=== PATIENT | male | born 1985 | race Caucasian/White ===

== ENCOUNTER 2021-05-21 04:44 | Emergency (ER) | payer MEDICAID ==
[~2021-05-21] VITALS: Ht 162.6 cm; Wt 81.6 kg
[2021-05-21 04:50] VITALS: BP 122/79
--- NOTE | 2021-05-21 04:50 | NUR ---
PT W/C ASSISTED TO BED 09.
--- NOTE | 2021-05-21 05:09 | NUR ---
REPORTS PAIN TO LOWER LEG WITH NOTABLE SWELLING AND REDNESS TO SITE. PATIENT HAS NO FURTHER COMPLAINTS. REPORTS PAST MEDICAL HX OF GOUT WITH NKA
[2021-05-21] MEDS ORDERED: KETOROLAC 30 MG/ML VIAL IVP ONE (05:25)
[2021-05-21] MEDS ORDERED: PRED20TA5 PO (05:58)
[2021-05-21] MEDS ORDERED: CEPH-588 PO (05:58)
[2021-05-21] MEDS ORDERED: ACET-8386 PO (05:58)
[2021-05-21] MEDS ORDERED: IBUP-2213 PO (05:58)
--- NOTE | 2021-05-21 06:05 | NUR ---
PATIENT CLEARED FOR DISCHARG AT THIS TIME. PENDING END OF BOLUS
--- NOTE | 2021-05-21 06:32 | NUR ---
FLUIDS FINISHED, PATIENT DISCHARGED AT THIS TIME. NO FURTHER QUESTIONS AFTER DISCHARGE TEACHING. ADVISED TO FOLLOW UP WITH PCP AND RETURN IF CONDITION WORSENS. RX SENT TO PHARMACY
[2021-05-21 06:33] VITALS: BP 122/79
== END 2021-05-21 06:32 | disposition home or self-care (01) ==
LOC: MED 04:44
DX: L03.116 Cellulitis of left lower limb (principal)
CPT/HCPCS: 96374; 99283; J1885

== ENCOUNTER 2021-06-19 15:59 | Inpatient (IN) | payer MEDICAID, SELFPAY ==
[~2021-06-19] VITALS: Ht 160 cm; Wt 91.6 kg
[~2021-06-19 15:59] MED LIST: ACET-8386 PO; CEPH-588 PO; IBUP-2213 PO; PRED20TA5 PO
[2021-06-19 16:07] VITALS: BP 127/88
[2021-06-19] MEDS ORDERED: NACL 0.9% 1,000 ML IV SCH (16:10)
[2021-06-19] MEDS ORDERED: cefTRIAXone 1,000 MG in DEXT 5% MINI-BAG PLUS 50 ML IV ONE (16:10)
--- NOTE | 2021-06-19 16:12 | NUR ---
PT W/C ASSISTED TO BED 3
--- NOTE | 2021-06-19 16:37 | NUR ---
ULTRASOUND AT BEDSIDE
[2021-06-19 16:51] LABS: BASOPHILS # (AUTO) 0.1 K/uL (0.00-0.22); BASOPHILS % (AUTO) 0.7 % (0.0-2.0); EOSINOPHILS # (AUTO) 0.2 K/uL (0-0.4); EOSINOPHILS % (AUTO) 1.5 % (0.0-4.0); HEMOGLOBIN 13.7 g/dL (12.0-18.0); LYMPHOCYTES # (AUTO) 1.6 K/uL (2.0-11.5); LYMPHOCYTES % (AUTO) 15.6 % (20.5-51.1); MEAN CORPUSCULAR HEMOGLOBIN 29 pg (27-31); MEAN CORPUSCULAR HGB CONC 34 g/dL (33-37); MEAN CORPUSCULAR VOLUME 85.2 fL (80-94); MONOCYTES # (AUTO) 0.8 K/uL (0.8-1.0); MONOCYTES % (AUTO) 7.8 % (1.7-9.3); NEUTROPHILS # (AUTO) 7.6 K/uL (1.8-7.7); NEUTROPHILS % (AUTO) 74.4 % (42.2-75.2); PLATELET COUNT (AUTO) 270 K/uL (140-450); RED CELL DISTRIBUTION WIDTH 14.5 % (11.6-13.7); WHITE BLOOD COUNT (AUTO) 10.3 K/uL (4.8-10.8)
[2021-06-19] MEDS ORDERED: cefTRIAXone 1,000 MG VIAL ONE (16:54)
[2021-06-19 17:07] LABS: ALBUMIN 3.2 g/dL (3.4-5.0); ANION GAP 12.2 (8-16); CARBON DIOXIDE 27.7 mmol/L (21-32); CREATININE 0.9 mg/dL (0.6-1.3); POTASSIUM 3.9 mmol/L (3.5-5.1); TOTAL BILIRUBIN 0.5 mg/dL (0.0-1.0)
--- NOTE | 2021-06-19 17:08 | NUR ---
HIM DIRECTOR AT BEDSIDE
--- NOTE | 2021-06-19 17:46 | NUR ---
36/M BIB SELF WITH C/O BILATERAL LEG PAIN X3 WEEKS. PATIENT STATES HE BEGAN HAVING REDNESS AND SWELLING TO BILATERAL LEGS, REPORTS SEEING HIS PCP AND GIVEN RX OF BACTRIM AND WAS GIVEN ROCEPHIN IM WITHOUT IMPROVEMENT. PATIENT REPORTS HE WAS REFERRED TO COME TO THE ED TO RULE OUT DVT. PATIENT REPORTS 5/10 PAIN THAT WORSENS WITH TOUCH OR MOVEMENT, DENIES FEVERS, CHILLS, NAUSEA, VOMITING. BILATERAL LEGS ARE RED, SWOLLEN AND TENDER TO TOUCH, LEFT CALF TENDERNESS. PATIENT PLACED IN GOWN, ON BEDSIDE CONVEYOR WEIGHER OPERATOR.
--- NOTE | 2021-06-19 19:25 | NUR ---
Pt report given to DENISHA COTTON. Transfer of care at this time.
[2021-06-19] MEDS ORDERED: VANCOMYCIN PER PHARMACY MC PRN (19:40)
[2021-06-19] MEDS ORDERED: MORPHINE SULFATE 2 MG/ML SYR IVP PRN (19:40)
[2021-06-19] MEDS ORDERED: MORPHINE SULFATE 4 MG/ML SYR IVP PRN (19:40)
--- NOTE | 2021-06-19 20:00 | NUR ---
REPORT GIVEN TO SUKI DENNY AT THIS TIME FOR TRANSPORT TO [facility]
[2021-06-19 20:15] VITALS: BP 132/76
--- NOTE | 2021-06-19 20:15 | NUR ---
ADMITTED FROM EMERGENCY DEPARTMENT VIA [facility] WITH TWO STAFF WITH CHIEF COMPLAINT OF PAIN - BILATERAL LOWER EXTREMITIES. PATIENT IS 36 Y/O MALE, COOPERATIVE AWAKE, ALERT AND VERBALLY RESPONSIVE. AOX4. INITIAL V/S TAKEN, PATIENT IN ROOM AIR. HEAD TO TOE ASSESSMENT DONE WITH DENISHA KILLIAN COMPLETED. REDNESS AND SWELLING NOTED ON BILATERAL LOWER EXTREMITIES. SKIN INTACT. IV LINE ON RAC 20G, INTACT AND PATENT. ORIENTED TO CALL LIGHT, BED, PHONE, TELEVISION, BATHROOM, VISITING HOURS, ID BRACELET ON, BELONGING LIST CHECKED. ALL SAFETY MEASURES IN PLACE. CALL LIGHT WITHIN REACH. WILL CONTINUE TO MONITOR.
[2021-06-19] MEDS ORDERED: VANCOMYCIN 1,000 MG in DEXTROSE 5% 250 ML IV ONE (21:00)
[2021-06-19] MEDS ORDERED: VANCOMYCIN 1,000 MG VIAL ONE (22:16)
--- NOTE | 2021-06-19 22:30 | NUR ---
VANCOMYCIN GIVEN PER MD ORDER. PT TOLERATED WELL.BREATHING IS UNLABORED AND EQUAL. PT ASKED FOR A SANDWICH AND APPLE JUICE.ALL NEEDS MET.ALL PRECAUTIONS IN PLACE.WILL CONTINUE TO MONITOR.
--- NOTE | 2021-06-20 00:30 | NUR ---
PT COMPLAINED OF 7/10 PAIN ON HIS BLE. PRN PAIN MEDICATION GIVEN. PT TOLERATED WELL. ALL PRECAUTIONS IN PLACE. WILL CONTINUE TO MONITOR.
[2021-06-20] MEDS ORDERED: METOPROLOL 25 MG TAB PO SCH (01:59)
[2021-06-20] MEDS ORDERED: ONDANSETRON 4 MG/2 ML VIAL IVP PRN (02:00)
[2021-06-20] MEDS ORDERED: METOPROLOL 25 MG TAB ONE (02:02)
--- NOTE | 2021-06-20 02:12 | NUR ---
PT IS NAUSEOUS AND IS VOMITING. ALSO PT HEART RATE AT 131. MESSAGE AND SHE ORDERED METOPROLOL PO AND ZOFRAN PRN.
[2021-06-20 02:17] VITALS: BP 116/72
--- NOTE | 2021-06-20 04:15 | NUR ---
ROUNDS MADE.PT DENIES NAUSEA. NO DISTRESS NOTED. VISIBLE CHEST RISE AND FALL. ALL PRECAUTIONS IN PLACE. CALL LIGHT WITHIN REACH.WILL CONTINUE TO MONITOR.
--- NOTE | 2021-06-20 06:19 | NUR ---
PT IS STABLE. NO ACUTE EVENTS THROUGHOUT THE NIGHT ASIDE FROM EPISODE OF NAUSEA AND VOMITING.NO S/SX OF DISTRESS NOTED. BREATHING EQUAL AND UNLABORED. ALL NEEDS MET.ALL PRECAUTIONS IN PLACE. CALL LIGHT WITHIN REACH.WILL ENDORSE TO AM SHIFT NURSE.
--- NOTE | 2021-06-20 07:39 | NUR ---
PATIENT ENDORSED TO AM NURSE FOR CONTINUITY OF CARE. V/S WNL. PATIENT IS STABLE. ALL SAFETY MEASURES IN PLACE. CALL LIGHT WITHIN REACH.
[2021-06-20 08:00] VITALS: BP 108/68
--- NOTE | 2021-06-20 08:00 | NUR ---
RECEIVED REPORT FROM PRINTING EQUIPMENT MECHANIC APPRENTICE AT BEDSIDE FOR CONTINUITY OF CARE. PATIENT ALERT AWAKE ORIENTED X4, NOT IN ANY DISTRESS NOTED. WITH IVF ON GOING AND INFUSING WELL. DENIES PAIN AT THIS TIME. ON MONITOR SHOWS SR. NEEDS ATTENDED. WILL CONTINUE TO MONITOR.
[2021-06-20] MEDS: VANCOMYCIN 1,000 MG in DEXTROSE 5% 250 ML IV SCH ×2 (08:06→17:00)
[2021-06-20] MEDS: METOPROLOL 25 MG TAB PO SCH ×2 (08:54→20:38)
--- NOTE | 2021-06-20 08:54 | NUR ---
PATIENT HAS BEEN SCREENED AND CATEGORIZED LOW NUTRITION RISK. PATIENT WILL BE SEEN WITHIN 7 DAYS OF ADMISSION. 06/26/[address]
[2021-06-20] MEDS ORDERED: POTASSIUM CHLORIDE 10 MEQ TABER PO PRN (09:25)
[2021-06-20] MEDS ORDERED: MAG SULF 2000 MG/WATER PREMIX 50 ML IV PRN (09:25)
[2021-06-20] MEDS ORDERED: ONDANSETRON 4 MG/2 ML VIAL IM/IVP PRN (09:50)
[2021-06-20] MEDS ORDERED: ZOLPIDEM 5 MG TAB PO PRN (09:50)
[2021-06-20] MEDS ORDERED: ACETAMINOPHEN 325 MG TAB PO PRN (09:50)
[2021-06-20] MEDS ORDERED: DOCUSATE SODIUM 100 MG GELCAP PO PRN (09:50)
[2021-06-20] MEDS ORDERED: LORazepam 2 MG/ML VIAL IM/IVP PRN (09:50)
[2021-06-20 10:38] LABS: PROTHROMBIN TIME 16.4 secs (10.8-13.4)
[2021-06-20] MEDS: NACL 0.9% 1,000 ML IV SCH (10:43)
[2021-06-20 10:49] LABS: THYROID STIMULATING HORMONE 1.61 uIU/mL (0.34-3.74)
--- NOTE | 2021-06-20 12:00 | NUR ---
SEEN BY DR. MAX AND GOT ORDER TO DOWNGRADE. WILL CONTINUE TO MONITOR.
[2021-06-20 13:42] LABS: ANION GAP 11.5 (8-16); CARBON DIOXIDE 26.2 mmol/L (21-32); POTASSIUM 3.7 mmol/L (3.5-5.1)
[2021-06-20 14:02] LABS: BASOPHILS % (AUTO) 0.2 % (0.0-2.0); EOSINOPHILS # (AUTO) 0.1 K/uL (0-0.4); EOSINOPHILS % (AUTO) 1.2 % (0.0-4.0); HEMATOCRIT 37.4 % (36-52); HEMOGLOBIN 12.6 g/dL (12.0-18.0); LYMPHOCYTES # (AUTO) 1.2 K/uL (2.0-11.5); LYMPHOCYTES % (AUTO) 14.9 % (20.5-51.1); MEAN CORPUSCULAR HEMOGLOBIN 29 pg (27-31); MEAN CORPUSCULAR HGB CONC 34 g/dL (33-37); MEAN CORPUSCULAR VOLUME 85.3 fL (80-94); MONOCYTES # (AUTO) 0.4 K/uL (0.8-1.0); MONOCYTES % (AUTO) 5.4 % (1.7-9.3); NEUTROPHILS # (AUTO) 6.4 K/uL (1.8-7.7); NEUTROPHILS % (AUTO) 78.3 % (42.2-75.2); PLATELET COUNT (AUTO) 243 K/uL (140-450); RED BLOOD CELL COUNT(AUTO) 4.38 MIL/uL (4.20-6.10); RED CELL DISTRIBUTION WIDTH 14.2 % (11.6-13.7); WHITE BLOOD COUNT (AUTO) 8.1 K/uL (4.8-10.8)
[2021-06-20 16:00] VITALS: BP 117/81
--- NOTE | 2021-06-20 19:23 | NUR ---
REPORT GIVEN TO BUILDING ILLUMINATING ENGINEER AT BEDSIDE FOR CONTINUITY OF CARE. PATIENT IN STABLE CONDITION.
--- NOTE | 2021-06-20 19:24 | NUR ---
RECEIVED REPORT AT BEDSIDE FROM AM NURSE. PATIENT IN BED EATING SOME SNACKS. AWAKE, ALERT AND VERBALLY RESPONSIVE. ABLE TO VERBALIZED NEEDS. ALL SAFETY MEASURES IN PLACE. CALL LIGHT WITHIN REACH. WILL CONT TO MONITOR.
--- NOTE | 2021-06-20 20:45 | NUR ---
ADMINISTERED SCHEDULED MEDICATIONS. PATIENT TOLERATED WELL. NO ADVERSE SIDE EFFECT NOTED. ALL SAFETY MEASURES IN PLACE. CALL LIGHT WITHIN REACH. WILL CONTINUE TO MONITOR.
--- NOTE | 2021-06-20 23:00 | NUR ---
ROUNDING PATIENT. SLEEPING WELL. VISIBLE CHEST RISING AND FALLING. CALL LIGHT WITHIN REACH. WILL CONTINUE TO MONITOR.
[2021-06-21] VITALS: BP 113/60
[2021-06-21] MEDS: VANCOMYCIN 1,000 MG in DEXTROSE 5% 250 ML IV SCH (00:39)
--- NOTE | 2021-06-21 01:00 | NUR ---
PATIENT SLEEPING WELL. CHEST SEEN RISING AND FALLING. WILL CONTINUE TO MONITOR.
[2021-06-21] MEDS: HYDROcodone/APAP 5/325 MG 1 TAB TAB PO PRN ×2 (02:24→20:20)
[2021-06-21] MEDS: NACL 0.9% 1,000 ML IV SCH ×2 (02:30→19:10)
--- NOTE | 2021-06-21 04:40 | NUR ---
ROUNDING PATIENT. PATIENT IS AWAKE AND ASKING FOR SOME SNACKS. SNACKS PROVIDED. CALL LIGHT WITHIN REACH. WILL CONTINUE TO MONITOR.
--- NOTE | 2021-06-21 05:24 | NUR ---
Patient's Plan of Care was discussed and reviewed with NOMI: LLUVIA
--- NOTE | 2021-06-21 07:25 | NUR ---
ENDORSED PATIENT TO AM NURSE FOR CONTINUITY OF CARE. PATIENT IS STABLE.
[2021-06-21 07:42] LABS: BASOPHILS # (AUTO) 0.1 K/uL (0.00-0.22); BASOPHILS % (AUTO) 0.8 % (0.0-2.0); EOSINOPHILS # (AUTO) 0.2 K/uL (0-0.4); HEMATOCRIT 40.3 % (36-52); HEMOGLOBIN 13.7 g/dL (12.0-18.0); LYMPHOCYTES # (AUTO) 1.8 K/uL (2.0-11.5); LYMPHOCYTES % (AUTO) 23.2 % (20.5-51.1); MEAN CORPUSCULAR HEMOGLOBIN 29 pg (27-31); MEAN CORPUSCULAR HGB CONC 34 g/dL (33-37); MEAN CORPUSCULAR VOLUME 85.2 fL (80-94); MONOCYTES # (AUTO) 0.6 K/uL (0.8-1.0); MONOCYTES % (AUTO) 8.2 % (1.7-9.3); NEUTROPHILS % (AUTO) 64.8 % (42.2-75.2); PLATELET COUNT (AUTO) 295 K/uL (140-450); RED BLOOD CELL COUNT(AUTO) 4.73 MIL/uL (4.20-6.10); RED CELL DISTRIBUTION WIDTH 14.3 % (11.6-13.7); WHITE BLOOD COUNT (AUTO) 7.8 K/uL (4.8-10.8)
[2021-06-21 07:53] LABS: MAGNESIUM 2.1 mg/dL (1.8-2.4); PHOSPHORUS 2.8 mg/dL (2.5-4.9)
--- NOTE | 2021-06-21 07:59 | NUR ---
RECEIVED REPORT FROM PRINCIPAL NETWORK ARCHITECT AT BEDSIDE FOR CONTINUITY OF CARE. PATIENT ALERT AWAKE ORIENTED X4, NOT IN ANY DISTRESS NOTED. WITH IVF ON GOING AND INFUSING WELL. DENIES PAIN AT THIS TIME. BRATHING EVEN UNLABORED, ALL SFETY MEASURES ON PLACE, CALS LIGHT WITHIN REACH
[2021-06-21 08:00] VITALS: BP 120/84
[2021-06-21 08:08] LABS: T4 (THYROXINE) 6.2 ug/dL (4.5-12.0)
[2021-06-21 08:13] LABS: ANION GAP 13.7 (8-16); CARBON DIOXIDE 24.2 mmol/L (21-32); CREATININE 0.9 mg/dL (0.6-1.3); POTASSIUM 3.9 mmol/L (3.5-5.1)
[2021-06-21 09:18] LABS: CHOL/HDL RATIO 4.4 (1-4.5)
[2021-06-21] MEDS: METOPROLOL 25 MG TAB PO SCH ×2 (09:24→21:06)
[2021-06-21] MEDS: VANCOMYCIN HCL 1.25 GM in DEXTROSE 5% 250 ML IV SCH ×2 (09:25→16:05)
--- NOTE | 2021-06-21 10:12 | NUR ---
PATIENT IN BED NO COMPLAINS, GOT MORNING MEDICATION ADMINISTRATED, TOLERATED WELLNO SOD NOTED, ALL SAFETY MEASURES ONPLACE, CALLS LIGHT WITHIN REACH
--- NOTE | 2021-06-21 10:54 | NUR ---
DR GUZMAN ASKED TO STOP CEFTRIAXONE DR SQUIRES SUGGESTED
--- NOTE | 2021-06-21 11:49 | NUR ---
PATIENT IN BED NO COMPLAINS,NO SOD NOTED, ALL SAFETY MEASURES ONPLACE, CALLS LIGHT WITHIN REACH
--- NOTE | 2021-06-21 14:10 | NUR ---
PATIENT IN BED NO COMPLAINS,NO SOD NOTED, ALL SAFETY MEASURES ON PLACE, CALLS LIGHT WITHIN REACH
[2021-06-21 16:00] VITALS: BP 104/61
--- NOTE | 2021-06-21 16:20 | NUR ---
PATIENT IN BED NO COMPLAINS,NO SOD NOTED, ALL SAFETY MEASURES ON PLACE, CALLS LIGHT WITHIN REACH
--- NOTE | 2021-06-21 18:20 | NUR ---
PATIENT IN BED NO COMPLAINS,NO SOD NOTED, ALL SAFETY MEASURES ON PLACE, CALLS LIGHT WITHIN REACH
--- NOTE | 2021-06-21 19:20 | NUR ---
FULL BEDSIDE REPORT GIVEN TO DECORATING EQUIPMENT SETTER NURSE
--- NOTE | 2021-06-21 19:21 | NUR ---
RECEIVED REPORT FROM AM NURSE FOR CONTINUITY OF CARE. AWAKE , A&O X4 .NO S/S OF DISTRESS. RESPIRATIONS EVEN AND UNLABORED.ON ROOM AIR. SKIN IS WARM AND DRY. IV ON R AC 20G @TKO. CALL LIGHT WITHIN REACH. ALL SAFETY MEASURES IN PLACE. WILL CONTINUE TO MONITOR.
[2021-06-21 20:00] VITALS: BP 127/76
--- NOTE | 2021-06-21 20:20 | NUR ---
PT C/O 8/10 PAIN IN L LEG AND REQUESTED PAIN MEDICATION. ADMINISTERED NORCO TABLET ORDERED. WILL CONTINUE TO MONITOR.
--- NOTE | 2021-06-21 21:06 | NUR ---
SCHEDULED MEDICATION ADMINISTERED ORDERED. PT TOLERATED IT WELL. WILL CONTINUE TO MONITOR.
--- NOTE | 2021-06-21 23:15 | NUR ---
ROUNDED ON PT. NO S/S OF DISTRESS. SPONGE BATH PROVIDED BY ELECTRIC RAZOR MECHANIC. CALL LIGHT WITHIN REACH. ALL SAFETY MEASURES IN PLACE. WILL CONTINUE TO MONITOR
[2021-06-22] MEDS: VANCOMYCIN HCL 1.25 GM in DEXTROSE 5% 250 ML IV SCH (00:28)
--- NOTE | 2021-06-22 01:25 | NUR ---
ROUNDED ON PT. PT IS SLEEPING. NAD. CALL LIGHT WITHIN REACH. ALL SAFETY MEASURES IN PLACE. WILL CONTINUE TO MONITOR.
--- NOTE | 2021-06-22 03:15 | NUR ---
PT'S IV LEAKING CHARGE NURSE ATTEMPTED IV INSERTION TWO TIMES WITHOUT SUCCESS.WILL CALL ER NURSE FOR IV REINSERTION.
[2021-06-22 04:00] VITALS: BP 106/60
--- NOTE | 2021-06-22 04:00 | NUR ---
ER NURSE INSERTED NEW IV 22G IV ON FIRST ATTEMPT ON L HAND. PT VOIDED AND URINE SAMPLE OBTAINED FOR UA TAKEN TO LAB.
[2021-06-22 04:12] LABS: APPEARANCE,URINE CLEAR (CLEAR); BILIRUBIN,URINE NEGATIVE (NEGATIVE); BLOOD, URINE NEGATIVE (NEGATIVE); COLOR,URINE YELLOW (YELLOW); LEUKOCYTE ESTERASE ,URINE NEGATIVE (NEGATIVE); NITRITE, URINE POSITIVE (NEGATIVE); PH,URINE 6.5 (5.0-9.0); UGLUCOSE NEGATIVE (NEGATIVE)
[2021-06-22 04:15] LABS: RBC,URINE 0-5 /HPF (0-5); WBC,URINE 0-5 /HPF (0-5)
--- NOTE | 2021-06-22 06:16 | NUR ---
ROUNDED ON PT. PT RESTING IN BED. NAD. NO COMPLAINTS MADE. CALL LIGHT WITHIN REACH. ALL SAFETY MEASURES IN PLACE. WILL CONTINUE TO [facility].
[2021-06-22 07:07] LABS: BASOPHILS # (AUTO) 0.1 K/uL (0.00-0.22); EOSINOPHILS # (AUTO) 0.2 K/uL (0-0.4)
[2021-06-22 07:14] LABS: ANION GAP 14.2 (8-16); CARBON DIOXIDE 25.9 mmol/L (21-32); POTASSIUM 4.1 mmol/L (3.5-5.1)
--- NOTE | 2021-06-22 07:15 | NUR ---
ENDORSED PT TO AM SHIFT NURSE FOR CONTINUITY OF CARE. PT IS STABLE.
[2021-06-22 07:18] LABS: HEMOGLOBIN 13.9 g/dL (12.0-18.0); LYMPHOCYTES # (AUTO) 2.1 K/uL (2.0-11.5); MEAN CORPUSCULAR HEMOGLOBIN 29 pg (27-31); MEAN CORPUSCULAR HGB CONC 34 g/dL (33-37); RED BLOOD CELL COUNT(AUTO) 4.82 MIL/uL (4.20-6.10); WHITE BLOOD COUNT (AUTO) 11.9 K/uL (4.8-10.8)
[2021-06-22 07:25] LABS: BASOPHILS % (AUTO) 0.8 % (0.0-2.0); EOSINOPHILS % (AUTO) 1.9 % (0.0-4.0); HEMATOCRIT 40.5 % (36-52); LYMPHOCYTES % (AUTO) 17.4 % (20.5-51.1); MEAN CORPUSCULAR VOLUME 84.1 fL (80-94); MONOCYTES # (AUTO) 0.8 K/uL (0.8-1.0); MONOCYTES % (AUTO) 6.4 % (1.7-9.3); NEUTROPHILS # (AUTO) 8.8 K/uL (1.8-7.7); NEUTROPHILS % (AUTO) 73.5 % (42.2-75.2); PLATELET COUNT (AUTO) 302 K/uL (140-450); RED CELL DISTRIBUTION WIDTH 14.1 % (11.6-13.7)
[2021-06-22 07:27] LABS: MAGNESIUM 2.1 mg/dL (1.8-2.4); PHOSPHORUS 3.3 mg/dL (2.5-4.9)
[2021-06-22] MEDS: METOPROLOL 25 MG TAB PO SCH ×2 (09:30→21:14)
--- NOTE | 2021-06-22 09:50 | NUR ---
RECEIVED VANCO TROUGH FROM LAB - 28.9. PER PHARMACIST CAM, HOLD AM VANCO DOSE.
[2021-06-22] MEDS: HYDROcodone/APAP 5/325 MG 1 TAB TAB PO PRN ×2 (09:54→21:15)
[2021-06-22] MEDS: NACL 0.9% 1,000 ML IV SCH (11:50)
--- NOTE | 2021-06-22 12:08 | NUR ---
DC PLANNING: PATIENT PRESENTED WITH C/O REDNESS AND SWELLING TO BLE'S X 3 WEEKS. WAS PRESCRIBED KEFLEX WITHOUT IMPROVEMENT, WAS SENT TO ED BY HIS PCP AFTER RECEIVING A DOSE OF ROCEPHIN. DVT R/O, ID CONSULT ORDERED FOR MANAGEMENT. BC'S ORDERED, ON IV VANCOMYCIN, HEPARIN, IVF'S AND NORCO AND MS FOR PAIN MANAGEMENT. CM SPOKE WITH THE PATIENT AT BEDSIDE, HE STATES THAT HE MOVES BETWEEN HIS MOTHERS RESIDENCE AND HIS FATHERS RESIDENCE, FRIENDS HOUSES OR MOTELS WHEN HE HAS A VOUCHER. HE IS CURRENTLY STAYING WITH HIS MOTHER, ADDRESS [address] [place] [address], [address], [place], PHONE [phone]. HE HAS A H/O GOUT AND SOMETIMES HAS PROBLEMS AMBULATING AND USES CRUTCHES. IS OTHERWISE INDEPENDENT WITH ALL ACTIVITIES, IS FOLLOWED MEDICALLY AT [facility]. HE IS UNEMPLOYED AND HAS INCOME FROM OF $231/MONTH, ALSO HAS CALFRESH. DC PLAN IS TO RETURN HOME WHEN CLINICALLY STABLE, CM WILL FOLLOW FOR NEEDS.
--- NOTE | 2021-06-22 15:00 | NUR ---
PATIENT RESTING IN BED, AAO x4, DENIES PAIN/DISCOMFORT AT THIS TIME. RESPIRATIONS EVEN AND UL ON RA. IVF INFUSING PER MD ORDER, IV SITE WNL. ALL NEEDS MET. BED IN LOWEST POSITION, CALL LIGHT IN REACH, SAFETY MEASURES IN PLACE. WILL CONT TO MONITOR.
[2021-06-22 16:00] VITALS: BP 131/71
--- NOTE | 2021-06-22 18:36 | NUR ---
PATIENT RESTING IN BED, EATING DINNER. DENIES PAIN/DISCOMFORT. RESPIRATIONS EVEN AND UL ON RA. IVF INFUSING PER MD ORDER, IV SITE WNL. ALL NEEDS MET. NO SIGNIFICANT CHANGES THROUGHOUT SHIFT. BED IN LOWEST POSITION, CALL LIGHT IN REACH, SAFETY MEASURES IN PLACE. WILL CONT TO MONITOR AND ENDORSE TO PM NURSE.
--- NOTE | 2021-06-22 19:13 | NUR ---
REPORT GIVEN TO PM NURSE FOR CONTINUITY OF CARE.
--- NOTE | 2021-06-22 19:14 | NUR ---
RECEIVED REPORT FROM AM SHIFT NURSE FOR CONTINUITY OF CARE. PT AWAKE IN BED A&OX4. NO S/S OF DISTRESS. ON ROOM AIR. RESPIRATIONS EVEN AND UNLABORED. IV ON LEFT HAND 22G RUNNING NS @ 60ML/HR INFUSING WELL. ALL SAFETY MEASURES IN PLACE. CALL LIGHT WITHIN REACH. WILL CONTINUE TO MONITOR.
[2021-06-22 20:00] VITALS: BP 139/66
--- NOTE | 2021-06-22 21:14 | NUR ---
SCHEDULED MEDICATIONS ADMINISTERED ORDERED. PT COMPLAINS OF PAIN IN LEFT LEG AND REQUESTED PAIN MEDICATION. ADMINISTERED NORCO TABLET ORDERED. PT TOLERATED IT WELL.
--- NOTE | 2021-06-22 23:27 | NUR ---
MADE ROUNDS ON PT. NO S/S OF DISTRESS. RESPIRATIONS EVEN AND UNLABORED. CALL LIGHT WITHIN REACH. WILL CONTINUE TO MONITOR.
--- NOTE | 2021-06-23 01:35 | NUR ---
CHECKED ON PT. NO S/S OF DISTRESS. PROVIDED SPONGE BATH TO PT REQUESTED. ALL SAFETY MEASURES IN PLACE.
--- NOTE | 2021-06-23 03:39 | NUR ---
MADE ROUNDS ON PT, SLEEPING. NO S/S OF DISTRESS. RESPIRATIONS EVEN AND UNLABORED. ALL SAFETY PRECAUTIONS IN PLACE.
[2021-06-23 04:00] VITALS: BP 106/59
[2021-06-23] MEDS: NACL 0.9% 1,000 ML IV SCH (04:30)
--- NOTE | 2021-06-23 05:45 | NUR ---
CHECKED ON PT, AWAKE IN BED. NO COMPLAINTS MADE. NO S/S OF DISTRESS. NEEDS ATTENDED. WILL CONTINUE TO MONITOR.
[2021-06-23 06:57] LABS: BASOPHILS % (AUTO) 0.4 % (0.0-2.0); EOSINOPHILS # (AUTO) 0.3 K/uL (0-0.4); EOSINOPHILS % (AUTO) 2.4 % (0.0-4.0); HEMATOCRIT 41.1 % (36-52); LYMPHOCYTES # (AUTO) 2.3 K/uL (2.0-11.5); LYMPHOCYTES % (AUTO) 21.3 % (20.5-51.1); MEAN CORPUSCULAR HEMOGLOBIN 29 pg (27-31); MEAN CORPUSCULAR HGB CONC 34 g/dL (33-37); MEAN CORPUSCULAR VOLUME 84.5 fL (80-94); MONOCYTES # (AUTO) 0.7 K/uL (0.8-1.0); MONOCYTES % (AUTO) 6.8 % (1.7-9.3); NEUTROPHILS # (AUTO) 7.5 K/uL (1.8-7.7); NEUTROPHILS % (AUTO) 69.1 % (42.2-75.2); PLATELET COUNT (AUTO) 355 K/uL (140-450); RED BLOOD CELL COUNT(AUTO) 4.86 MIL/uL (4.20-6.10); RED CELL DISTRIBUTION WIDTH 14.3 % (11.6-13.7); WHITE BLOOD COUNT (AUTO) 10.8 K/uL (4.8-10.8)
[2021-06-23 07:10] LABS: ANION GAP 14.4 (8-16); CARBON DIOXIDE 26.9 mmol/L (21-32); CREATININE 1.1 mg/dL (0.6-1.3); POTASSIUM 4.3 mmol/L (3.5-5.1)
--- NOTE | 2021-06-23 07:25 | NUR ---
ENDORSED PT TO AM SHIFT NURSE FOR CONTINUITY OF CARE. PT IS STABLE.
--- NOTE | 2021-06-23 08:00 | NUR ---
RECEIVED REPORT FROM DENTAL AMALGAM PROCESSOR FOR CONTINUITY OF CARE. PATIENT ALERT AWAKE ORIENTED X4 NOT IN ANY DISTRESS NOTED. DENIES PAIN AT THIS TIME. WITH IVF ON GOING AND INFUSING WELL. BILATERAL LOWER LEG SEEMS IMPROVING. CALL LIT WITHIN REACH. NEEDS ATTENDED, WILL CONTINUE TO MONITOR.
[2021-06-23 08:03] LABS: MAGNESIUM 2.1 mg/dL (1.8-2.4); PHOSPHORUS 3.3 mg/dL (2.5-4.9)
[2021-06-23] MEDS: METOPROLOL 25 MG TAB PO SCH (08:47)
[2021-06-23] MEDS: HYDROcodone/APAP 5/325 MG 1 TAB TAB PO PRN (08:58)
[2021-06-23] MEDS ORDERED: VANCOMYCIN 1,500 MG in DEXTROSE 5% 500 ML IV SCH (09:00)
--- NOTE | 2021-06-23 10:00 | NUR ---
SEEN BY DR. JULIAN AND DISCUSSED THE PLAN OF CARE. FOR POSSIBLE DC TODAY. PATIENT MADE AWARE, ENCOURAGE TO INCREASE ACTIVITY. WILL CONTINUE TO MONITOR.
[2021-06-23] MEDS ORDERED: CLIN300C2 PO (11:08)
[2021-06-23] MEDS ORDERED: LEVO-315 PO (11:08)
--- NOTE | 2021-06-23 12:05 | NUR ---
IV REMOVED. DC PAPERS SIGNED BY PATIENT. DC INSTRUCTION GIVEN AND VERBALIZED UNDERSTANDING. IN STABLE CONDITION. WAITING FOR FAMILY TO PICK HIM UP.
--- NOTE | 2021-06-23 13:06 | NUR ---
HERE TO WILDLIFE OFFICER PATIENT, DISCHARGED VIA WHEELCHAIR, IN STABLE CONDITION.
== END 2021-06-23 13:10 | disposition home or self-care (01) | DRG 383 ==
LOC: MED 15:59 → MTU 19:41
DX: L03.115 Cellulitis of right lower limb (principal); E44.1 Mild protein-calorie malnutrition; Z20.822 Contact with and (suspected) exposure to COVID-19; E66.9 Obesity, unspecified; F15.90 Other stimulant use, unspecified, uncomplicated; L03.116 Cellulitis of left lower limb; E11.65 Type 2 diabetes mellitus with hyperglycemia; Z79.899 Other long term (current) drug therapy; Z71.51 Drug abuse counseling and surveillance of drug abuser; Z68.35 Body mass index [BMI] 35.0-35.9, adult
CPT/HCPCS: 36415; 71045; 80048; 80053; 80202; 81001; 82150; 83036; 83605; 83690; 83735; 83880; 84100; 84134; 84436; 84443; 84484; 85025; 85610; 85730; 87040; 87081; 93005; 93971; 96365; 99285; J0696; J1644; J2270; J3370; J7060; Q0092

== ENCOUNTER 2022-01-10 23:57 | Emergency (ER) | payer MEDICAID ==
[~2022-01-10] VITALS: Ht 162.6 cm; Wt 97.5 kg
[~2022-01-10 23:57] MED LIST changes: -CEPH-588 PO; +CLIN300C2 PO; +LEVO-315 PO; -PRED20TA5 PO
[2022-01-11 00:11] VITALS: BP 142/90
--- NOTE | 2022-01-11 01:30 | NUR ---
PT W/C ASSISTED TO BED #7
--- NOTE | 2022-01-11 01:49 | NUR ---
Dr. Duncan examining patient.
--- NOTE | 2022-01-11 01:55 | NUR ---
36 YO M BIB SELF FOR BILAT HAND AND FOOT PAIN X 1 MONTH. PT STATES THAT PAIN RADIATES FROM HAND TO ARM. PAIN IS NUMB, TINGLING AND SHOOTING. PAIN STARTED A MONTH AGO AND HAD NOT YET SUBSIDED. PT DENIES N/F/V/D/COUGH. PT FEELS WEAK. HX: GOUT , BLOOD CLOT, AND KNEE PAIN. PT Has HAD KNEE FLUID TAKEN OUT A ABOUT A YEAR AGO FOR CELLULITIS. RX:NONE ALLERGIES: DENIES
[2022-01-11] MEDS ORDERED: NAPR-54 PO (02:04)
[2022-01-11] MEDS ORDERED: CEPH-588 PO (02:04)
[2022-01-11] MEDS ORDERED: KETOROLAC 30 MG/ML VIAL IM ONE (02:05)
[2022-01-11 02:44] VITALS: BP 146/90
--- NOTE | 2022-01-11 02:44 | NUR ---
Patient discharged with v/s stable. Written and verbal after care instructions given and explained. Patient alert, oriented and verbalized understanding of instructions. Ambulatory with steady gait. All questions addressed prior to discharge. ID band removed. Patient advised to follow up with PMD. Rx of KEFLEX AND NAPROSYN given. Patient educated on indication of medication including possible reaction and side effects. Opportunity to ask questions provided and answered.
--- NOTE | 2022-01-11 02:48 | NUR ---
The patient's care was reviewed and supervised by Eugenia Garner RN.
== END 2022-01-11 02:44 | disposition home or self-care (01) ==
LOC: MED 23:57
DX: M10.9 Gout, unspecified (principal); M79.642 Pain in left hand; M79.641 Pain in right hand; Z98.890 Other specified postprocedural states
CPT/HCPCS: 96372; 99283; J1885